=== PATIENT | female | born 1995 | race Caucasian/White ===

== ENCOUNTER 2021-02-03 12:18 | Emergency (ER) | payer SELFPAY ==
[~2021-02-03] VITALS: Ht 165 cm; Wt 141.5 kg
[2021-02-03 12:50] VITALS: BP 151/96
[2021-02-03] MEDS ORDERED: ACHD5005 PO (13:16)
[2021-02-03] MEDS ORDERED: METH4TAB10 PO (13:16)
--- NOTE | 2021-02-03 13:16 | ED EENT ---
History of Present Illness General Chief Complaint: Head/Cervical Problems Stated Complaint: JAW PAIN/TROUBLE TALKING/NAUSEA Nursing Triage Note: PT AMB TO FT 2 W C/O LEFT SIDED JAW PAIN X5 DAYS THAT RADIATES UP TO HER EAR. PT ALSO REPORTS NAUSEA D/T THE PAIN. Source: patient Exam Limitations: no limitations History of Present Illness Date Seen by Provider: Feb 03, 2021 Time Seen by Provider: 13:11 Initial Comments To ER with left-sided jaw pain for about 5 days. Radiates up into her ear. Opening and closing her mouth makes the pain worse. This initially began with some clicking sensation in the left temporomandibular joint when she would chew or open and close her mouth. Timing/Duration: abrupt Severity: moderate Location: mouth Prearrival Treatment: no prearrival treatment Associated Symptoms: denies symptoms Allergies and Home Medications Patient Home Medication List Home Medication List Reviewed: Yes Hydrocodone/Acetaminophen (Hydrocodone-Acetamin 5-325 mg) 1 Each Tablet, 1 TAB PO Q4H PRN for PAIN-MODERATE (5-7) Prescribed by: CHINO HU on 02/03/21 1316 Methylprednisolone (Methylprednisolone Dose Pack) 4 Mg Tab.ds.pk, 4 MG PO UD Prescribed by: CHINO HU on 02/03/21 1316 Review of Systems Review of Systems Constitutional: see HPI Eyes: No Symptoms Reported Ears: No Symptoms Reported Nose: no symptoms reported Mouth: see HPI Throat: no symptoms reported Respiratory: no symptoms reported Cardiovascular: no symptoms reported Musculoskeletal: no symptoms reported Skin: no symptoms reported Neurological: No Symptoms Reported Past Srbzexd-Zftfmx-Datfqn Hx Patient Social History Tobacco Use?: Yes Tobacco type used: Cigarettes Smoking Status: Current Everyday Smoker Use of E-Cig and/or Vaping dev: No Substance use?: No Alcohol Use?: Yes Alcohol Frequency: Once in a while Physical Exam Vital Signs Vital Signs - First Documented 02/03/21 12:50 Temp 36.7 Pulse 80 Resp 20 B/P (MAP) 151/96 (114) Pulse Ox 100 O2 Delivery Room Air Height, Weight, BMI Height: '" Weight: lbs. oz. kg; 51.00 BMI Method: General Appearance: WD/WN, no apparent distress Eyes: bilateral eye normal inspection, bilateral eye PERRL, bilateral eye EOMI Ears: bilateral ear auricle normal, bilateral ear canal normal, bilateral ear TM normal Mouth/Throat: No pharynx tenderness, No tongue swollen, No tonsillar exudate, No tonsillar swelling; trismus; No uvula swelling, No voice changes; other (No intraoral swelling, no external visible swelling to suggest dental abscess or other cause of the trismus. No hot potato voice to suggest peritonsillar abscess or uvular deviation. TTP over TMJ on left) Neck: non-tender, full range of motion; No lymphadenopathy (R), No lymphadenopathy (L) Cardiovascular: regular rate, rhythm, no murmur Respiratory: normal breath sounds, no respiratory distress, no accessory muscle use Neurologic/Psychiatric: alert, normal mood/affect, oriented x 3 Skin: normal color, warm/dry Progress/Results/Core Measures Results/Orders Vital Signs/I&O 02/03/21 12:50 Temp 36.7 Pulse 80 Resp 20 B/P (MAP) 151/96 (114) Pulse Ox 100 O2 Delivery Room Air Blood Pressure Mean: 114 Departure Impression Primary Impression: TMJ arthralgia Disposition: 01 HOME, SELF-CARE Condition: Stable Departure-Patient Inst. Decision time for Depature: 13:14 Referrals: NO,LOCAL PHYSICIAN (PCP/Family) Primary Care Physician Patient Instructions: TMJ Exercises, Temporomandibular Joint (TMJ) Disorders (DC) Add. Discharge Instructions: Heat or ice to the area whichever seems to be the most helpful. Take the st eroids and the pain medication as directed. Follow-up with your doctor or dentist within the next 1 to 2 weeks. All discharge instructions reviewed with patient and/or family. Voiced understanding. Scripts Hydrocodone/Acetaminophen (Hydrocodone-Acetamin 5-325 mg) 1 Each Tablet 1 TAB PO Q4H PRN for PAIN-MODERATE (5-7), #10 TAB Prov: CHINO HU APRN 02/03/21 Methylprednisolone (Methylprednisolone Dose Pack) 4 Mg Tab.ds.pk 4 MG PO UD for 6 Days, #21 PKG PER DOSE PACK INSTRUCTIONS Prov: CHINO HU APRN 02/03/21 CHINO HU APRN Feb 03, 2021 13:16
== END 2021-02-03 13:34 | disposition home or self-care (01) ==
LOC: ER 12:23
DX: M26.602 Left temporomandibular joint disorder, unspecified (principal); F17.210 Nicotine dependence, cigarettes, uncomplicated
CPT/HCPCS: 99281

== ENCOUNTER 2021-02-08 20:46 | Emergency (ER) | payer MEDICAID ==
[~2021-02-08] VITALS: Ht 165.1 cm; Wt 140.0 kg
[~2021-02-08 20:46] MED LIST: ACHD5005 PO; METH4TAB10 PO
--- NOTE | 2021-02-08 21:02 | ED General ---
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 No nausea no vomiting no fever no chills. States there is a family history of colon cancer and is very concerned about that. Timing/Duration: 1-2 Days Severity: Moderate Associated Systoms: Denies Symptoms Allergies and Home Medications Patient Home Medication List Home Medication List Reviewed: Yes Hydrocodone/Acetaminophen (Hydrocodone-Acetamin 5-325 mg) 1 Each Tablet, 1 TAB PO Q4H PRN for PAIN-MODERATE (5-7) Prescribed by: CHINO HU on 02/03/21 1316 Methylprednisolone (Methylprednisolone Dose Pack) 4 Mg Tab.ds.pk, 4 MG PO UD Prescribed by: CHINO HU on 02/03/21 1316 Review of Systems Review of Systems Constitutional: see HPI EENTM: see HPI Respiratory: no symptoms reported Cardiovascular: no symptoms reported Genitourinary: no symptoms reported Musculoskeletal: no symptoms reported Skin: no symptoms reported Psychiatric/Neurological: No Symptoms Reported Hematologic/Lymphatic: No Symptoms Reported Physical Exam Vital Signs Capillary Refill : Height, Weight, BMI Height: '" Weight: lbs. oz. kg; 51.00 BMI Method: General Appearance: No Apparent Distress, WD/WN, Obese Eyes: Bilateral Eye Normal Inspection, Bilateral Eye PERRL, Bilateral Eye EOMI Respiratory: No Accessory Muscle Use, No Respiratory Distress Gastrointestinal: Normal Bowel Sounds, Non Tender, Soft Rectal: Other (Rectal exam done with Reena LAM at the bedside. There is no external hemorrhoid, no obvious perirectal blood. Digital rectal exam reveals no palpable mass nor any blood.) Extremity: Normal Capillary Refill, Normal Inspection Neurologic/Psychiatric: Alert, Oriented x3 Skin: Normal Color, Warm/Dry Progress/Results/Core Measures Suspected Sepsis SIRS Temperature: Pulse: Respiratory Rate: Laboratory Tests 02/08/21 20:58: White Blood Count 14.7H Blood Pressure / Mean: Laboratory Tests 02/08/21 20:58: Creatinine 0.80, Platelet Count 368, Total Bilirubin 0.5 Results/Orders Lab Results Laboratory Tests Test 02/08/21 20:58 Range/Units White Blood Count 14.7 H 4.3-11.0 10^3/uL Red Blood Count 5.17 H 3.80-5.11 10^6/uL Hemoglobin 14.9 11.5-16.0 g/dL Hematocrit 46 35-52 % Mean Corpuscular Volume 89 80-99 fL Mean Corpuscular Hemoglobin 29 25-34 pg Mean Corpuscular Hemoglobin Concent 33 32-36 g/dL Red Cell Distribution Width 13.2 10.0-14.5 % Platelet Count 368 130-400 10^3/uL Mean Platelet Volume 9.2 9.0-12.2 fL Immature Granulocyte % (Auto) 0 % Neutrophils (%) (Auto) 60 42-75 % Lymphocytes (%) (Auto) 31 12-44 % Monocytes (%) (Auto) 6 0-12 % Eosinophils (%) (Auto) 2 0-10 % Basophils (%) (Auto) 1 0-10 % Neutrophils # (Auto) 8.8 H 1.8-7.8 10^3/uL Lymphocytes # (Auto) 4.5 H 1.0-4.0 10^3/uL Monocytes # (Auto) 0.9 0.0-1.0 10^3/uL Eosinophils # (Auto) 0.3 0.0-0.3 10^3/uL Basophils # (Auto) 0.1 0.0-0.1 10^3/uL Immature Granulocyte # (Auto) 0.1 0.0-0.1 10^3/uL Neutrophils % (Manual) 69 % Lymphocytes % (Manual) 27 % Monocytes % (Manual) 2 % Blood Morphology Comment NORMAL Sodium Level 139 135-145 MMOL/L Potassium Level 4.0 3.6-5.0 MMOL/L Chloride Level 105 98-107 MMOL/L Carbon Dioxide Level 21 21-32 MMOL/L Anion Gap 13 5-14 MMOL/L Blood Urea Nitrogen 14 7-18 MG/DL Creatinine 0.80 0.60-1.30 MG/DL Estimat Glomerular Filtration Rate 87 BUN/Creatinine Ratio 18 Glucose Level 91 70-105 MG/DL Calcium Level 9.1 8.5-10.1 MG/DL Corrected Calcium 8.9 8.5-10.1 MG/DL Total Bilirubin 0.5 0.1-1.0 MG/DL Aspartate Amino Transf (AST/SGOT) 16 5-34 U/L Alanine Aminotransferase (ALT/SGPT) 25 0-55 U/L Alkaline Phosphatase 66 40-136 U/L Total Protein 7.7 6.4-8.2 GM/DL Albumin 4.3 3.2-4.5 GM/DL Serum Test, Qualitative NEGATIVE NEGATIVE My Orders Orders - CHINO HU APRN Cbc With Automated Diff (02/08/21 20:57) Comprehensive Metabolic Panel (02/08/21 20:57) Hcg,Qualitative Serum (02/08/21 20:57) Ed Iv/Invasive Line Start (02/08/21 20:57) Ct Abdomen/Pelvis Wo (02/08/21 20:57) Ua Culture If Indicated (02/08/21 21:02) Manual Differential (02/08/21 20:58) Vital Signs/I&O Capillary Refill : Departure Impression Primary Impression: History of rectal bleeding Disposition: HOME, SELF-CARE Condition: Stable Departure-Patient Inst. Decision time for Depature: 22:00 Referrals: CHIARA HERNANDEZ BRETT D DO KIDO, TAKAAKI MD NO,LOCAL PHYSICIAN (PCP) Primary Care Physician Patient Instructions: Colonoscopy (DC) Add. Discharge Instructions: 1. Call a surgeon of your choosing on Thursday to make an appointment to be seen for follow-up. Return to ER for any worsening. CHINO HU APRN Feb 08, 2021 21:02
[2021-02-08 21:06] LABS: BASOPHILS % (AUTO) 1 % (0-10); EOSINOPHILS # (AUTO) 0.3 10^3/uL (0.0-0.3); EOSINOPHILS % (AUTO) 2 % (0-10); HEMATOCRIT 46 % (35-52); HEMOGLOBIN 14.9 g/dL (11.5-16.0); LYMPHOCYTES # (AUTO) 4.5 10^3/uL (1.0-4.0); LYMPHOCYTES % (AUTO) 31 % (12-44); MEAN CORPUSCULAR HEMOGLOBIN 29 pg (25-34); MEAN CORPUSCULAR HGB CONC 33 g/dL (32-36); MEAN CORPUSCULAR VOLUME 89 fL (80-99); MEAN PLATELET VOLUME 9.2 fL (9.0-12.2); MONOCYTES # (AUTO) 0.9 10^3/uL (0.0-1.0); MONOCYTES % (AUTO) 6 % (0-12); NEUTROPHILS # (AUTO) 8.8 10^3/uL (1.8-7.8); NEUTROPHILS % (AUTO) 60 % (42-75); PLATELET COUNT 368 10^3/uL (130-400); WHITE BLOOD COUNT 14.7 10^3/uL (4.3-11.0)
[2021-02-08 21:07] LABS: BASOPHILS # (AUTO) 0.1 10^3/uL (0.0-0.1)
[2021-02-08 21:19] LABS: ALBUMIN 4.3 GM/DL (3.2-4.5)
[2021-02-08 21:21] LABS: CALCIUM 9.1 MG/DL (8.5-10.1)
[2021-02-08 21:22] LABS: TOTAL PROTEIN 7.7 GM/DL (6.4-8.2)
[2021-02-08 21:24] LABS: BILIRUBIN,TOTAL 0.5 MG/DL (0.1-1.0)
[2021-02-08 21:26] LABS: CREATININE SERUM 0.8 MG/DL (0.60-1.30)
--- NOTE | 2021-02-08 21:27 | Diagnostic Imaging Report ---
PROCEDURE: CT abdomen and pelvis without contrast. TECHNIQUE: Multiple contiguous axial images were obtained through the abdomen and pelvis without the use of intravenous contrast. Auto Exposure Controls were utilized during the CT exam to meet ALARA standards for radiation dose reduction. INDICATION: Abdominal pain. FINDINGS: Heart size is normal. The lung bases are clear. The liver is normal in size and without focal lesions. Gallbladder is surgically absent. There is no biliary ductal dilatation. Spleen is normal. Pancreas and adrenal glands are unremarkable. Kidneys are normal in appearance. The aorta is nonaneurysmal. The bowel gas pattern is nonspecific. There is no free air. There is no ascites. There is no focal inflammatory change. Bladder is normal. There is no pelvic mass, adenopathy or free fluid. There are degenerative and postsurgical changes in the spine. IMPRESSION: 1. Previous cholecystectomy. 2. Degenerative and postsurgical changes in the spine. 3. Otherwise unremarkable noncontrast CT abdomen and pelvis. Dictated by: Dictated on workstation # [id number]
[2021-02-08 21:39] LABS: LYMPHOCYTES % (MANUAL) 27 %; MONOCYTES % (MANUAL) 2 %; NEUTROPHILS % (MANUAL) 69 %; RBC MORPH NORMAL
[2021-02-08 23:13] VITALS: BP 134/81
[2021-02-13] MEDS ORDERED: TEST100V3 IM (09:38)
[2021-02-13] MEDS ORDERED: DIVA500T PO (09:38)
== END 2021-02-08 22:07 | disposition home or self-care (01) ==
LOC: EDUNIT# 20:46 → ER 20:48
DX: K62.5 Hemorrhage of anus and rectum (principal); E66.9 Obesity, unspecified; Z68.43 Body mass index [BMI] 50.0-59.9, adult; Z80.0 Family history of malignant neoplasm of digestive organs
CPT/HCPCS: 36415; 74176; 80053; 84703; 85007; 85025; 85027

== ENCOUNTER 2021-02-10 19:06 | Emergency (ER) | payer MEDICAID ==
[~2021-02-10] VITALS: Ht 177 cm; Wt 136.0 kg
[2021-02-10] MEDS ORDERED: LACTATED RINGERS 1,000 ML IV SCH (19:15)
[2021-02-10] MEDS ORDERED: ONDANSETRON 4 MG/2 ML (SDV) Z0FRAN IVP ONE ×2 (19:15→20:15)
--- NOTE | 2021-02-10 19:24 | ED GU-Female ---
General Chief Complaint: Abdominal/GI Problems Stated Complaint: ABD PAIN,N/V,LOSS OF APET Source: patient Exam Limitations: no limitations History of Present Illness Date Seen by Provider: Feb 10, 2021 Time Seen by Provider: 19:21 Initial Comments To ER with reports of suprapubic abdominal pain nausea vomiting loss of appetite. She is afraid she might have a bladder infection, normally when she does she has to be admitted because she is allergic to so many antibiotics. She had a bowel movement 3 hours ago that was blood-tinged. She reports a history of rectal bleeding for which I saw her on 02/08/2021. Digital rectal exam revealed no gross blood no external hemorrhoid and lab work and CT of the abdomen pelvis was unremarkable. Biologically female on testosterone supplementation. Timing/Duration: constant Severity/Quality: moderate Location: suprapubic Radiation: none Activities at Onset: none Prior Genitourinary Problems: none Associated Symptoms: denies symptoms Allergies and Home Medications Allergies Coded Allergies: cephalexin (Verified Allergy, Unknown, 02/10/21) ciprofloxacin (Verified Allergy, Unknown, 02/10/21) nitrofurantoin (Verified Allergy, Unknown, 02/10/21) sulfamethoxazole (Verified Allergy, Unknown, 02/10/21) trimethoprim (Verified Allergy, Unknown, 02/10/21) Patient Home Medication List Home Medication List Reviewed: Yes Divalproex Sodium (Depakote) 500 Mg Tablet.dr, 500 MG PO BID, (Reported) Entered as Reported by: YANET DURÁN on 02/13/21 09 Testosterone Cypionate (Testosterone Cypionate) 100 Mg/1 Ml Vial, 50 MG IM WEEK, (Reported) Entered as Reported by: YANET DURÁN on 02/13/21 09 Discontinued Medications Hydrocodone/Acetaminophen (Hydrocodone-Acetamin 5-325 mg) 1 Each Tablet, 1 TAB PO Q4H PRN for PAIN-MODERATE (5-7) Discontinued Reason: No Longer Taking Prescribed by: CHINO HU on 02/03/211315 Methylprednisolone (Methylprednisolone Dose Pack) 4 Mg Tab.ds.pk, 4 MG PO UD Discontinued Reason: No Longer Taking Prescribed by: CHINO HU on 02/03/211315 Review of Systems Review of Systems Constitutional: see HPI EENTM: see HPI Respiratory: no symptoms reported, dyspnea on exertion Gastrointestinal: abdominal pain, nausea Genitourinary: no symptoms reported Musculoskeletal: no symptoms reported Skin: no symptoms reported Psychiatric/Neurological: No Symptoms Reported Endocrine: No Symptoms Reported Physical Exam Vital Signs Vital Signs - First Documented 02/10/21 20:43 Pulse 79 Resp 16 B/P (MAP) 108/68 Pulse Ox 99 O2 Delivery Room Air Capillary Refill : Height, Weight, BMI Height: '" Weight: lbs. oz. kg; 51.00 BMI Method: General Appearance: WD/WN, no apparent distress, obese HEENT: PERRL/EOMI, normal ENT inspection Neck: non-tender, full range of motion Respiratory: no respiratory distress, no accessory muscle use Gastrointestinal: normal bowel sounds, non tender, soft Extremities: normal range of motion, non-tender Neurologic/Psychiatric: alert, normal mood/affect, oriented x 3 Skin: normal color, warm/dry Procedures/Interventions IV : Location: Right Site: Antecubital IV Catheter Type: Peripheral IV IV Catheter Gauge: 20 Progress/Results/Core Measures Suspected Sepsis SIRS Temperature: Pulse: Respiratory Rate: Blood Pressure / Mean: Results/Orders Lab Results My Orders Medications Given in ED Vital Signs/I&O Capillary Refill : Departure Communication (Admissions) Despite the alleged rectal bleeding her hemoglobin has improved. We will give a prescription for nausea medication. Impression Primary Impression: Nausea and vomiting Disposition: 01 HOME, SELF-CARE Condition: Stable Departure-Patient Inst. Decision time for Depature: 20:06 Referrals: NO,LOCAL PHYSICIAN (PCP/Family) Primary Care Physician Patient Instructions: Nausea and Vomiting, Adult (DC) CHINO HU APRN Feb 10, 2021 19:24
[2021-02-10] MEDS ORDERED: PROMETHAZINE INJ 25 MG/ML (PHENERGAN) AMP IVP ONE (19:30)
[2021-02-10 19:48] LABS: BILIRUBIN,URINE NEGATIVE (NEGATIVE); CLARITY,URINE CLOUDY; COLOR,URINE YELLOW; GLUCOSE, URINE (UA) NEGATIVE (NEGATIVE); KETONES,URINE NEGATIVE (NEGATIVE); LEUKOCYTE ESTERASE ,URINE 1+ (NEGATIVE); NITRITE,URINE NEGATIVE (NEGATIVE); PROTEIN,URINE NEGATIVE (NEGATIVE)
[2021-02-10 19:52] LABS: BASOPHILS # (AUTO) 0.1 10^3/uL (0.0-0.1); BASOPHILS % (AUTO) 0 % (0-10); EOSINOPHILS # (AUTO) 0.3 10^3/uL (0.0-0.3); EOSINOPHILS % (AUTO) 2 % (0-10); HEMATOCRIT 47 % (35-52); HEMOGLOBIN 15.5 g/dL (11.5-16.0); LYMPHOCYTES # (AUTO) 3.2 10^3/uL (1.0-4.0); LYMPHOCYTES % (AUTO) 23 % (12-44); MEAN CORPUSCULAR HEMOGLOBIN 30 pg (25-34); MEAN CORPUSCULAR HGB CONC 33 g/dL (32-36); MEAN CORPUSCULAR VOLUME 89 fL (80-99); MEAN PLATELET VOLUME 9.1 fL (9.0-12.2); MONOCYTES # (AUTO) 0.7 10^3/uL (0.0-1.0); MONOCYTES % (AUTO) 5 % (0-12); NEUTROPHILS # (AUTO) 9.5 10^3/uL (1.8-7.8); NEUTROPHILS % (AUTO) 69 % (42-75); PLATELET COUNT 345 10^3/uL (130-400); WHITE BLOOD COUNT 13.8 10^3/uL (4.3-11.0)
[2021-02-10 19:56] LABS: BACTERIA,URINE NEGATIVE /HPF; RBC,URINE 0-2 /HPF; WBC,URINE 0-2 /HPF
[2021-02-10] MEDS ORDERED: RX-ONDANSETRON 4 MG ODT (ZOFRAN) PPK #4 PO STA (20:06)
[2021-02-10 20:12] LABS: ALBUMIN 4.2 GM/DL (3.2-4.5); BILIRUBIN,TOTAL 0.8 MG/DL (0.1-1.0); CALCIUM 9.5 MG/DL (8.5-10.1); CREATININE SERUM 0.74 MG/DL (0.60-1.30); TOTAL PROTEIN 7.8 GM/DL (6.4-8.2)
[2021-02-10] MEDS ORDERED: diphenhydrAMINE 50 MG/ML INJ (BENADRYL) IVP ONE (20:15)
[2021-02-10 20:45] VITALS: BP 108/68
[2021-02-13] MEDS ORDERED: TEST100V3 IM (09:38)
[2021-02-13] MEDS ORDERED: DIVA500T PO (09:38)
== END 2021-02-10 20:47 | disposition home or self-care (01) ==
LOC: EDUNIT# 19:06 → ER 19:10
DX: R11.2 Nausea with vomiting, unspecified (principal); E66.9 Obesity, unspecified; Z68.43 Body mass index [BMI] 50.0-59.9, adult
CPT/HCPCS: 36415; 80053; 81000; 85025

== ENCOUNTER 2021-02-14 05:27 | Outpatient (RCR) | payer MEDICAID ==
[~2021-02-14] VITALS: Ht 165 cm; Wt 126.0 kg
[~2021-02-14 05:27] MED LIST changes: +DIVA500T PO; +TEST100V3 IM
== END 2021-02-14 11:43 | disposition home or self-care (01) ==
LOC: PREOP 05:27
PROVIDERS: ATTEND Surgery
DX: Z01.812 Encounter for preprocedural laboratory examination (principal); K62.5 Hemorrhage of anus and rectum; R10.9 Unspecified abdominal pain; Z80.0 Family history of malignant neoplasm of digestive organs; Z20.822 Contact with and (suspected) exposure to COVID-19
CPT/HCPCS: 87635

== ENCOUNTER 2021-02-18 09:33 | Day surgery (SDC) | payer MEDICAID ==
[~2021-02-18] VITALS: Ht 165 cm; Wt 126.0 kg
[2021-02-18] MEDS ORDERED: LACTATED RINGERS 1,000 ML IV STA (09:41)
[2021-02-18 10:00] VITALS: BP 134/90
--- NOTE | 2021-02-18 10:36 | Progress Note-Pre Operative ---
Pre-Operative Progress Note H&P Reviewed The H&P was reviewed, patient examined and no changes noted. Time Seen by Provider: 10:33 Date H&P Reviewed: Feb 18, 2021 Time H&P Reviewed: 10:33 Pre-Operative Diagnosis: Abd pain, Rectal bleed, family hx of colon CA CHIARA HERNANDEZ DO Feb 18, 2021 10:36
[2021-02-18] MEDS ORDERED: MIDAZOLAM 5 MG/5 ML (VERSED) VIAL ONE ×2 (10:51→11:00)
[2021-02-18] MEDS ORDERED: PROPOFOL INJECTION 50 ML IV ONE (10:52)
[2021-02-18 11:23] VITALS: BP 94/56
--- NOTE | 2021-02-18 11:24 | Progress Note-Post Operative ---
Post-Operative Progess Note Surgeon (s)/Lead Man Over All Dies In Pattern Shop (s) Surgeon CHIARA HERNANDEZ DO Lead Man Over All Dies In Pattern Shop: None Pre-Operative Diagnosis Abd pain, Rectal bleed, family hx of colon CA Post-Operative Diagnosis Gastritis Hiatal hernia esophagitis Fecal impaction Procedure & Operative Findings Date of Procedure 02/18/21 Procedure Performed/Findings EGD with bx Flexible sigmoidoscopy PROCEDURE NOTE: After informed consent was obtained, the patient was brought to the endoscopy suite, placed in bed in left lateral decubitus position. She was administered IV sedation by the EMERGENCY DEPARTMENT MANAGER who then monitored vitals the entire time, heart rate, blood pressure and pulse ox and the scope was inserted down the mouth through the esophagus into the stomach. On the way down, noted severe esophagitis, took a picture, pushed into the stomach, pushed past the antrum into the duodenum. Duodenum looked good. Pulled back and did a biopsy of antrum, then retroflexed the scope, saw a small hiatal hernia, took a picture of this and then pulled the scope into the GE junction and took another picture. Then did a biopsy of the GE junction. Pushed the scope back into the stomach, suctioned all the air out of the stomach. At this point pulled the scope up the esophagus; at the very top noted gastric mucosa implantation and took a picture. Finally pulled the scope out the mouth. Switched camera, switched gloves, went down below, and attempte the colonoscopy. Unfortunately, she had complete fecal impaction and could not even get out of the rectal vault. Pt states she took the prep, but it doesn't sound like the pt did. The patient tolerated the procedure and she recovered in the endoscopy suite. Anesthesia Type IV sedation by EMERGENCY DEPARTMENT MANAGER Estimated Blood Loss Estimated blood loss (mL): scant Specimens/Packing Specimens Removed antral bx GE jxn bx x 2 CHIARA HERNANDEZ DO Feb 18, 2021 11:24
--- NOTE | 2021-02-18 11:26 | Endoscopy Discharge Instruct ---
Endo Procedure/Findings Findings 1.: Gastritis 2.: Hiatal Hernia 3.: Other Findings (Esophagitis) 4.: Other Findings (Fecal Impaction) Discharge Instructions - Activity: You might feel a little sleepy until tomorrow. This is due to the medicine you received to relax you. Until tomorrow, you should: NOT drive a car, operate machinery or power tools. NOT drink any alcoholic beverages. NOT make any important decisions or sign importortant papers. Do not return to work until tomorrow, unless otherwise instructed. Resume previous activities tomorrow. Diet: Start by taking liquids. If you tolerate liquids, advance to solid food. 1.: Colonoscopy in 1 year 2.: EGD in 1 year Notify Physician - If you experience excessive bleeding, unusual abdominal pain, fever, or chest pain, contact your doctor immediately. CHIARA HERNANDEZ DO Feb 18, 2021 11:26
[2021-02-18 11:28] VITALS: BP 99/51
[2021-02-18 11:30] VITALS: BP 92/53
[2021-02-18 12:00] VITALS: BP 99/58
--- NOTE | 2021-02-18 12:04 | Anesthesia-General Post-Op ---
MAC Patient Condition Mental Status/LOC: Same as Preop Cardiovascular: Satisfactory Nausea/Vomiting: Absent Respiratory: Satisfactory Pain: Controlled Complications: Absent Post Op Complications Complications None Follow Up Care/Instructions Patient Instructions None needed. Anesthesiology Discharge Order Discharge Order Patient is doing well, no complaints, stable vital signs, no apparent adverse anesthesia problems. No complications reported per nursing. [place] KLINE CRNA Feb 18, 2021 12:04
[2021-02-18 12:15] VITALS: BP 99/58
== END 2021-02-18 12:15 | disposition home or self-care (01) ==
LOC: ENDO 09:33
PROVIDERS: ATTEND Surgery
DX: K22.10 Ulcer of esophagus without bleeding (principal); K44.9 Diaphragmatic hernia without obstruction or gangrene; K56.41 Fecal impaction; K29.50 Unspecified chronic gastritis without bleeding; G40.909 Epilepsy, unspecified, not intractable, without status epilepticus; J45.909 Unspecified asthma, uncomplicated; F41.0 Panic disorder [episodic paroxysmal anxiety]; E66.9 Obesity, unspecified; Z68.42 Body mass index [BMI] 45.0-49.9, adult; F17.210 Nicotine dependence, cigarettes, uncomplicated; Z80.0 Family history of malignant neoplasm of digestive organs; Z88.6 Allergy status to analgesic agent; Z88.0 Allergy status to penicillin; Z88.5 Allergy status to narcotic agent; Z88.1 Allergy status to other antibiotic agents; Z88.2 Allergy status to sulfonamides; Z79.899 Other long term (current) drug therapy

== ENCOUNTER 2021-04-16 14:00 | Emergency (ER) | payer MEDICAID ==
[~2021-04-16] VITALS: Ht 165 cm; Wt 138.6 kg
[~2021-04-16 14:00] MED LIST changes: -TEST100V3 IM; +TEST100V9 IM
--- NOTE | 2021-04-16 14:26 | ED GU-Female ---
General Chief Complaint: - Reproductive Stated Complaint: UTI Nursing Triage Note: AMB TO ROOM [facility] AND NEEDS ADMITTED PER PROVIDER BECAUSE SHE IS ALLERY TO A LOT OF ANTIBIOTICS. Source: patient Exam Limitations: no limitations ([place] LEMOS MED STUDENT) History of Present Illness Date Seen by Provider: Apr 16, 2021 Time Seen by Provider: 14:10 Initial Comments Audrey is a 26 yo F who presents to the ED via [facility] for [facility] and dysuria. Pt states her symptoms began 3 days ago and have been constant since. She has had dysuria and aching suprapubic pain that radiates to her groin. Also having associated nausea nd vomiting that began yesterday. She has not taken anything for her symptoms. Pain worsens with movement and palpation. She was seen at [facility] today and found to have a UTI on urine dipstick. Pt states that when she has taken antibiotics in the past she has had anaphylactic reactions so she and her provider do not feel comfortable taking antibiotics as an outpatient. Timing/Duration: constant, getting worse Severity/Quality: severe Location: suprapubic Radiation: groin Activities at Onset: none Prior Genitourinary Problems: none Modifying Factors: Improves With Movement, Improves With Palpation Associated Symptoms: abdominal pain; No dysuria, No fever/chills; loss of bladder control, nausea/vomiting ([place] LEMOS MED STUDENT) Initial Comments Patient states she is having some discomfort from her frontal. She denies discharge just dysuria. She denies dyspareunia. She denies having STDs. (ANNA TESFAYE) Allergies and Home Medications Allergies Coded Allergies: cephalexin (Verified Allergy, Unknown, 02/10/21) ciprofloxacin (Verified Allergy, Unknown, 02/10/21) nitrofurantoin (Verified Allergy, Unknown, 02/10/21) sulfamethoxazole (Verified Allergy, Unknown, 02/10/21) trimethoprim (Verified Allergy, Unknown, 02/10/21) Patient Home Medication List Home Medication List Reviewed: Yes (ANNA TESFAYE) Cefdinir (Cefdinir) 300 Mg Capsule, 300 MG PO BID Prescribed by: ANNA TESFAYE on 04/16/21 8365 Divalproex Sodium (Depakote) 500 Mg Tablet.dr, 500 MG PO BID, (Reported) Entered as Reported by: YANET DURÁN on 02/13/21 0938 Epinephrine (Epinephrine) 0.3 Mg/0.3 Ml Auto.injct, 0.3 MG IJ Q15M PRN for Anaphylaxis Prescribed by: ANNA TESFAYE on 04/16/21 1559 Testosterone Cypionate (Testosterone Cypionate) 100 Mg/1 Ml Vial, 50 MG IM WEEK, (Reported) Entered as Reported by: YANET DURÁN on 02/13/21 09 Review of Systems Review of Systems Constitutional: No chills, No fever; malaise EENTM: No blurred vision, No double vision Respiratory: No cough, No short of breath Cardiovascular: No chest pain, No palpitations Gastrointestinal: abdominal pain; No constipation, No diarrhea; nausea, vomiting Genitourinary: burning, dysuria, frequency, incontinence, pain, urgency Musculoskeletal: No back pain, No joint pain Skin: No change in color, No change in hair/nails Psychiatric/Neurological: Anxiety; Denies Depressed Endocrine: Denies Excessive Sweating, Denies Flushing ([place] LEMOS STUDENT) All Other Systemes Reviewed Negative Unless Noted: Yes (ANNA TESFAYE) Past Mbyrhju-Sfkhfs-Zlwmsz Hx Patient Social History Tobacco Use?: No Use of E-Cig and/or Vaping dev: No (ANNA TESFAYE) Seasonal Allergies Seasonal Allergies: No (FLORIDA LEMOS) Past Medical History Surgeries: No Respiratory: Yes Asthma Cardiac: No Neurological: Yes Seizure Disorder Genitourinary: No Gastrointestinal: No Musculoskeletal: No Endocrine: No HEENT: No Cancer: No Psychosocial: Yes (PANIC ATTACKS) Integumentary: No Blood Disorders: No (FLORIDA LEMOS) Family Medical History Colon cancer Physical Exam Vital Signs Vital Signs - First Documented 04/16/21 14:13 Temp 35.9 Pulse 100 Resp 18 B/P (MAP) 159/109 (126) Pulse Ox 100 O2 Delivery Room Air (ANNA TESFAYE) Vital Signs Capillary Refill : Less Than 3 Seconds ([place] LEMOS STUDENT) Height, Weight, BMI Height: '" Weight: lbs. oz. kg; 50.00 BMI Method: General Appearance: mild distress, obese HEENT: PERRL/EOMI, normal ENT inspection Neck: non-tender, full range of motion, supple, normal inspection Cardiovascular: regular rate, rhythm, no edema, no gallop, no JVD, no murmur Respiratory: chest non-tender, lungs clear, normal breath sounds, no respiratory distress, no accessory muscle use Gastrointestinal: normal bowel sounds, soft, no organomegaly, no pulsatile mass, tenderness Back: normal inspection, no vertebral tenderness, CVA tenderness (R), CVA tenderness (L) Extremities: normal range of motion, non-tender, normal inspection, no pedal edema, no calf tenderness Neurologic/Psychiatric: no motor/sensory deficits, alert, normal mood/affect, oriented x 3 Skin: normal color, warm/dry (Pansieve) Progress/Results/Core Measures Suspected Sepsis SIRS Temperature: Pulse: 100 Respiratory Rate: 18 Blood Pressure 159 /109 Mean: 126 (Pansieve) Results/Orders Lab Results Laboratory Tests Test 04/16/21 14:27 Range/Units Urine Color DARK YELLOW Urine Clarity CLOUDY Urine pH 6.0 5-9 Urine Specific [place] >=1.030 1.016-1.022 Urine Protein 1+ H NEGATIVE Urine Glucose (UA) NEGATIVE NEGATIVE Urine Ketones NEGATIVE NEGATIVE Urine Nitrite POSITIVE H NEGATIVE Urine Bilirubin NEGATIVE NEGATIVE Urine Urobilinogen 1.0 < = 1.0 MG/DL Urine Leukocyte Esterase 1+ H NEGATIVE Urine RBC (Auto) 1+ H NEGATIVE Urine RBC 2-5 H /HPF Urine WBC 25-50 H /HPF Urine Squamous Epithelial Cells 10-25 H /HPF Urine Crystals NONE /LPF Urine Bacteria LARGE H /HPF Urine Casts NONE /LPF Urine Mucus NEGATIVE /LPF Urine Culture Indicated YES (ANNA TESFAYE) My Orders Orders - ANNA TESFAYE Ed Iv/Invasive Line Start (04/16/21 14:34) Ns Iv 1000 Ml (Sodium Chloride 0.9%) (04/16/21 14:45) Cbc With Automated Diff (04/16/21 14:34) Comprehensive Metabolic Panel (04/16/21 14:34) Hs C Reactive Protein (04/16/21 14:34) Ua Culture If Indicated (04/16/21 14:34) Ceftriaxone 1 Gm Pre-Mix (Rocephin 1 Gm (04/16/21 14:45) Morphine Injection (Morphine Injection (04/16/21 14:37) Urine Culture (04/16/21 14:27) (ANNA TESFAYE) Vital Signs/I&O 04/16/21 04/16/21 14:13 16:08 Temp 35.9 Pulse 100 90 Resp 18 18 B/P (MAP) 159/109 (126) 159/100 Pulse Ox 100 98 O2 Delivery Room Air Room Air (ANNA TESFAYE) Vital Signs/I&O Capillary Refill : Less Than 3 Seconds (FLOR[place] LEMOS MED STUDENT) Blood Pressure Mean: 126 Progress Note #1: Time: 14:39 Progress Note Patient declined anything for anxiety but she would like something for pain. Morphine 4 mg ordered as she states she cannot tolerate NSAIDs for a nonspecific reason. We will give her a liter of fluids check some labs, urinalysis and culture and give her a gram of Rocephin and standby for anaphylaxis with epinephrine. Urine dipstick that accompanies her demonstrates nitrite positive, leukoesterase and negative for glucose bilirubin or ketones. I attest that I saw this patient alongside the medical student and agree with his documented history, physical exam and review of systems except as otherwise noted. Progress Note #2: Time: 15:50 Progress Note Med student and this provider sat down with the patient and her significant other over the telephone and had a conversation about her goals of care. The patient did provide a urine sample which did echo the results of the urine dipstick from earlier. We did review the medical necessity for admission which would involve a severe UTI, sepsis, dehydration, anaphylaxis or other medical emergency. We reviewed that we would be able to manage all of these issues here in the ER and would get her admitted if it was indicated. The patient expressed grave concern over issues in the past that had happened with her mother and that she did not feel comfortable coming to [facility]. She did not feel comfortable being treated here. We did offer her at [facility] medicines for her pain, her anxiety and her nausea. The patient states that they may help her in the short-term but would not help her long-term. The patient has not had any vomiting since she has been here in the ER. We allowed the patient to speak as well as her significant other to speak and voiced their concerns. The impasse came down to the patient did not feel comfortable being in this ER or this hospital system because of her previous issues with her mother. She has been seen at [place] in the past and states she feels more comfortable being worked up there. We offered to reach out to her primary care doctor to help her and the patient states she does not have a primary care doctor. The patient states she will go home and follow-up at [place] or some other ER where she feels more comfortable. We again offered her opportunity for antibiotics inpatient or on an outpatient infusion basis as indicated as well as symptomatic medications and fluids by IV and the patient declined stating she was ready to go home. We also offered the patient something for her anxiety as well as some time to discuss this with her significant other before making a decision. The patient declined anything for anxiety. We had several conversations with her during her stay and her vital signs are aseptic. Her mental status is intact she is alert and oriented x4. She was agitated however she became more calm after having a chance to air out her grievances about past events not involving today's presentation. She states she wants to go home and follow-up at another ER. She states that she would provide her own transportation. A prescription for epinephrine was provided as well as antibiotics if she wanted them. We did address her hiatal hernia even though this was not the reason for her visit today and encouraged her to follow-up with your primary care doctor or would refer her on to general surgery. AMA form was provided (ANNA TESFAYE) Departure Impression Primary Impression: Urinary tract infection Qualified Codes: N30.01 - Acute cystitis with hematuria Disposition: 07 AGAINST MEDICAL ADVICE Condition: Against Medical Advice Departure-Patient Inst. Decision time for Depature: 15:54 (ANNA TESFAYE) Referrals: CHIARA HERNANDEZ DO NO,LOCAL PHYSICIAN (PCP) Primary Care Physician Patient Instructions: Urinary Tract Infection, Adult (DC) Add. Discharge Instructions: Please machinist set up the prescription for epinephrine. Please machinist set up the prescription for cefdinir and take 1 capsule twice a day with food for 7 days for urinary tract infection. Cefdinir is a third generation cephalosporin and while it is related to Keflex allergies are not thought to cross from one generation to the next so it should be safe to trial. If at any point you have swelling of your throat, difficulty breathing or swallowing then inject yourself with the epinephrine once every [address] to the nearest ER. Alternatively I implore you to follow-up with a doctor or emergency room where you can get appropriately cared for. All discharge instructions reviewed with patient and/or family. Voiced understanding. Scripts Epinephrine (Epinephrine) 0.3 Mg/0.3 Ml Auto.injct 0.3 MG IJ Q15M PRN for Anaphylaxis, #2 EA 0 Refills Prov: ANNA TESFAYE 04/16/21 Cefdinir (Cefdinir) 300 Mg Capsule 300 MG PO BID for 7 Days, #14 CAP 0 Refills Prov: ANNA TESFAYE 04/16/21 Copy Copies To 1: CHIARA HERNANDEZ NATHAN MED STUDENT Apr 16, 2021 14:26 ANNA TESFAYE Apr 16, 2021 14:40
[2021-04-16] MEDS ORDERED: morphine INJ 10 MG/ML 1ML (SYR OR VIAL) IVP STA (14:37)
[2021-04-16] MEDS ORDERED: NS IV 1000 ML 1,000 ML IV SCH (14:45)
[2021-04-16] MEDS ORDERED: cefTRIAXone 1 GM PRE-MIX 50 ML IV ONE (14:45)
[2021-04-16 14:53] LABS: BILIRUBIN,URINE NEGATIVE (NEGATIVE); CLARITY,URINE CLOUDY; COLOR,URINE DARK YELLOW; GLUCOSE, URINE (UA) NEGATIVE (NEGATIVE); KETONES,URINE NEGATIVE (NEGATIVE); LEUKOCYTE ESTERASE ,URINE 1+ (NEGATIVE); NITRITE,URINE POSITIVE (NEGATIVE); PROTEIN,URINE 1+ (NEGATIVE)
[2021-04-16 15:08] LABS: BACTERIA,URINE LARGE /HPF; WBC,URINE 25-50 /HPF
[2021-04-16] MEDS ORDERED: EPIN0.3P18 IJ ×2 (15:58→15:59)
[2021-04-16] MEDS ORDERED: CEFD300C3 PO ×2 (15:58→15:59)
[2021-04-16 16:08] VITALS: BP 159/100
== END 2021-04-16 16:08 | disposition left against medical advice (07) ==
LOC: EDUNIT# 14:00 → ER 14:01
DX: N39.0 Urinary tract infection, site not specified (principal); J45.909 Unspecified asthma, uncomplicated; G40.909 Epilepsy, unspecified, not intractable, without status epilepticus; E66.9 Obesity, unspecified; Z68.43 Body mass index [BMI] 50.0-59.9, adult; Z79.899 Other long term (current) drug therapy
CPT/HCPCS: 81000; 87077; 87088; 87186; 99282

== ENCOUNTER 2021-04-19 15:56 | Emergency (ER) | payer MEDICAID ==
[~2021-04-19] VITALS: Ht 165 cm; Wt 137.7 kg
[~2021-04-19 15:56] MED LIST changes: +CEFD300C3 PO; +EPIN0.3P18 IJ
[2021-04-19] MEDS ORDERED: LACTATED RINGERS 1,000 ML IV SCH ×2 (16:15→16:30)
[2021-04-19] MEDS ORDERED: ONDANSETRON 4 MG/2 ML (SDV) Z0FRAN IVP ONE (16:15)
--- NOTE | 2021-04-19 16:16 | ED GU-Female ---
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 Reports she was instructed by primary care to come back to ER for reevaluation. She was seen here on 04/16/2021 for UTI symptoms. She did not have indication for admission despite her wishes. She now reports that she has had nausea and cannot take any of her oral antibiotics or any of her seizure medications (Depakote). Despite this poor appetite she is actually had a 1.5 pound weight gain since that visit. Timing/Duration: just prior to arrival, getting worse Severity/Quality: moderate Location: unknown Radiation: none Activities at Onset: none Prior Genitourinary Problems: none Associated Symptoms: dysuria, nausea/vomiting (CHINO HU APRN) Allergies and Home Medications Allergies Coded Allergies: cephalexin (Verified Allergy, Unknown, 02/10/21) ciprofloxacin (Verified Allergy, Unknown, 02/10/21) nitrofurantoin (Verified Allergy, Unknown, 02/10/21) sulfamethoxazole (Verified Allergy, Unknown, 02/10/21) trimethoprim (Verified Allergy, Unknown, 02/10/21) Patient Home Medication List Home Medication List Reviewed: Yes (CHINO HU APRN) Cefdinir (Cefdinir) 300 Mg Capsule, 300 MG PO BID Prescribed by: ANNA TESFAYE on 04/16/21 1559 Divalproex Sodium (Depakote) 500 Mg Tablet.dr, 500 MG PO BID, (Reported) Entered as Reported by: YANET DURÁN on 02/13/21 0938 Epinephrine (Epinephrine) 0.3 Mg/0.3 Ml Auto.injct, 0.3 MG IJ Q15M PRN for Anaphylaxis Prescribed by: ANNA TESFAYE on 04/16/21 1559 Promethazine HCl (Promethazine Suppository) 25 Mg Supp.rect, 25 MG RC TID PRN for NAUSEA/VOMITING Prescribed by: CHINO HU on 04/19/21 1619 Testosterone Cypionate (Testosterone Cypionate) 100 Mg/1 Ml Vial, 50 MG IM WEEK, (Reported) Entered as Reported by: YANET DURÁN on 02/13/21 0938 Review of Systems Review of Systems Constitutional: see HPI; No chills, No fever EENTM: see HPI Respiratory: no symptoms reported Cardiovascular: no symptoms reported Gastrointestinal: nausea, vomiting Genitourinary: no symptoms reported Musculoskeletal: no symptoms reported Skin: no symptoms reported Psychiatric/Neurological: No Symptoms Reported Endocrine: No Symptoms Reported Hematologic/Lymphatic: No Symptoms Reported (CHINO HU APRN) Past Pctzpss-Elaefg-Pcqbpm Hx Seasonal Allergies Seasonal Allergies: No (CHINO HU APRN) Past Medical History Surgeries: No Respiratory: Yes Asthma Cardiac: No Neurological: Yes Seizure Disorder Genitourinary: No Gastrointestinal: No Musculoskeletal: No Endocrine: No HEENT: No Cancer: No Psychosocial: Yes (PANIC ATTACKS) Integumentary: No Blood Disorders: No (CHINO HU APRN) Family Medical History Colon cancer Physical Exam Vital Signs Vital Signs - First Documented 04/19/21 16:02 Temp 36.5 Pulse 101 Resp 22 B/P (MAP) 140/100 (113) Pulse Ox 97 O2 Delivery Room Air (BRIAN ZEPEDA MD) Vital Signs Capillary Refill : (CHINO HU APRN) Height, Weight, BMI Height: '" Weight: lbs. oz. kg; 50.00 BMI Method: General Appearance: WD/WN, no apparent distress HEENT: PERRL/EOMI, normal ENT inspection Neck: non-tender, full range of motion Respiratory: no respiratory distress, no accessory muscle use Gastrointestinal: normal bowel sounds, non tender, soft Extremities: normal range of motion, non-tender Neurologic/Psychiatric: alert, normal mood/affect, oriented x 3 Skin: normal color, warm/dry (CHINO HU APRN) Progress/Results/Core Measures Suspected Sepsis SIRS Temperature: Pulse: Respiratory Rate: Laboratory Tests 04/19/21 16:11: White Blood Count 8.1 Blood Pressure / Mean: Laboratory Tests 04/19/21 16:11: Creatinine 0.76, Platelet Count 318, Total Bilirubin 0.9 (CHINO HU APRN) Results/Orders Vital Signs/I&O Capillary Refill : (CHINO HU APRN) Departure Communication (Admissions) 1807-due to very few hospital beds available, aseptic vital signs and unremarkable labs discharged home with as needed Phenergan suppository and outpatient orders for intramuscular Rocephin daily x2 more days. A second bag of LR was ordered but patient decided she did not want to stay to receive this, want to go on home. Additionally I did call both [facility] and [facility] both of whom reports that patient has never filled Depakote with them. (CHINO HU APRN) Impression Primary Impression: Nausea and vomiting Additional Impression: Urinary tract infection Disposition: HOME, SELF-CARE Condition: Improved Departure-Patient Inst. Decision time for Depature: 16:18 (CHINO HU APRN) Referrals: NO,LOCAL PHYSICIAN (PCP/Family) Primary Care Physician Patient Instructions: Urinary Tract Infection, Adult (DC) Scripts Promethazine HCl (Promethazine Suppository) 25 Mg Supp.rect 25 MG RC TID PRN for NAUSEA/VOMITING, #10 SUPP.RECT Prov: CHINO HU APRN 04/19/21 ATTENDING PHYSICIAN NOTE: I was physically present as attending physician in the emergency department during the care of this patient, but I was not directly involved in the decision making or delivery of care for this patient. (BRIAN ZEPEDA MD) CHINO HU APRN Apr 19, 2021 16:16 BRIAN ZEPEDA MD Apr 22, 2021 06:55
[2021-04-19 16:17] LABS: BASOPHILS # (AUTO) 0.1 10^3/uL (0.0-0.1); BASOPHILS % (AUTO) 1 % (0-10); EOSINOPHILS # (AUTO) 0.3 10^3/uL (0.0-0.3); EOSINOPHILS % (AUTO) 4 % (0-10); HEMATOCRIT 40 % (35-52); HEMOGLOBIN 13.4 g/dL (11.5-16.0); LYMPHOCYTES # (AUTO) 2.2 10^3/uL (1.0-4.0); LYMPHOCYTES % (AUTO) 27 % (12-44); MEAN CORPUSCULAR HEMOGLOBIN 30 pg (25-34); MEAN CORPUSCULAR HGB CONC 34 g/dL (32-36); MEAN CORPUSCULAR VOLUME 88 fL (80-99); MEAN PLATELET VOLUME 9.6 fL (9.0-12.2); MONOCYTES # (AUTO) 0.4 10^3/uL (0.0-1.0); MONOCYTES % (AUTO) 5 % (0-12); NEUTROPHILS # (AUTO) 5.1 10^3/uL (1.8-7.8); NEUTROPHILS % (AUTO) 63 % (42-75); PLATELET COUNT 318 10^3/uL (130-400); WHITE BLOOD COUNT 8.1 10^3/uL (4.3-11.0)
[2021-04-19] MEDS ORDERED: PROM25SU44 RC (16:19)
[2021-04-19 16:28] LABS: ALBUMIN 4.1 GM/DL (3.2-4.5)
[2021-04-19 16:29] LABS: POTASSIUM 3.8 MMOL/L (3.6-5.0)
[2021-04-19 16:30] LABS: CALCIUM 9.5 MG/DL (8.5-10.1)
[2021-04-19] MEDS ORDERED: DIVALPROEX EXT RELEASE 500 MG (DEPAKOTE ER) TAB PO SCH (16:30)
[2021-04-19 16:31] LABS: TOTAL PROTEIN 8.2 GM/DL (6.4-8.2)
[2021-04-19 16:33] LABS: BILIRUBIN,TOTAL 0.9 MG/DL (0.1-1.0)
[2021-04-19 16:35] LABS: CREATININE SERUM 0.76 MG/DL (0.60-1.30)
[2021-04-19 17:36] LABS: BILIRUBIN,URINE NEGATIVE (NEGATIVE); CLARITY,URINE CLEAR; COLOR,URINE ORANGE; GLUCOSE, URINE (UA) NEGATIVE (NEGATIVE); KETONES,URINE NEGATIVE (NEGATIVE); LEUKOCYTE ESTERASE ,URINE 2+ (NEGATIVE); NITRITE,URINE POSITIVE (NEGATIVE); PROTEIN,URINE TRACE (NEGATIVE)
[2021-04-19 17:49] LABS: BACTERIA,URINE LARGE /HPF
[2021-04-19 17:56] LABS: HCG,QUALITATIVE URINE NEGATIVE (NEGATIVE)
[2021-04-19] MEDS ORDERED: cefTRIAXone 1 GM PRE-MIX 50 ML IV ONE (18:00)
[2021-04-19] MEDS ORDERED: PROMETHAZINE INJ 25 MG/ML (PHENERGAN) AMP IVP ONE (18:00)
[2021-04-19 18:10] LABS: AMPHETAMINE SCREEN, URINE NEGATIVE (NEGATIVE); BARBITURATE SCREEN URINE NEGATIVE (NEGATIVE); BENZODIAZEPINES SCREEN URINE NEGATIVE (NEGATIVE); CANNABINOID SCREEN, URINE POSITIVE (NEGATIVE); COCAINE SCREEN URINE NEGATIVE (NEGATIVE); METHADONE STAT NEGATIVE (NEGATIVE); METHAMPHETAMINE SCREEN URINE S NEGATIVE (NEGATIVE); OPIATE SCREEN URINE NEGATIVE (NEGATIVE); OXYCODONE STAT NEGATIVE (NEGATIVE); PROPOXYPHENE STAT NEGATIVE (NEGATIVE); TRICYCLIC ANTIDEPRESSANTS SCRE NEGATIVE (NEGATIVE)
[2021-04-19 18:55] VITALS: BP 109/74
== END 2021-04-19 18:55 | disposition home or self-care (01) ==
LOC: EDUNIT# 15:56 → ER 15:57
DX: R11.2 Nausea with vomiting, unspecified (principal); N39.0 Urinary tract infection, site not specified; J45.909 Unspecified asthma, uncomplicated; G40.909 Epilepsy, unspecified, not intractable, without status epilepticus; Z79.899 Other long term (current) drug therapy
CPT/HCPCS: 36415; 80053; 80164; 80306; 81000; 84703; 85025; 87077; 87088; 87186